=== PATIENT | male | born 1980 | race Caucasian/White ===

== ENCOUNTER 2016-03-21 14:17 | Emergency (ER) | payer MEDICAID, OTHER ==
[~2016-03-21] VITALS: Ht 180.3 cm; Wt 94.5 kg
[~2016-03-21 14:17] MED LIST: IBUP-1542 PO; IBUP800T25 PO
[2016-03-21 14:20] VITALS: Ht 180.3 cm; Wt 94.5 kg
--- NOTE | 2016-03-21 15:09 | ERD ---
ER Documentation Chief Complaint Date/Time DATE: 03/21/16 TIME: 15:06 Chief Complaint back pain HPI This is a 35-year-old male who presents emergency department today complaining of low back pain for the past 2 days. Patient is a 2 days ago he injured his back while lifting a heavy vacuum that was filled with water. Patient states he works at [employer]. States last he took Tylenol for the pain but he is having pain even sleeping. Denies any fevers or chills, loss of bowel or bladder control. ROS All systems reviewed and are negative except as per history of present illness. Medications Home Meds Active Scripts Cyclobenzaprine Hcl* (Cyclobenzaprine Hcl*) 10 Mg Tablet, 10 MG PO QHS, #7 TAB Prov:EDINSON ARREDONDO PA-C 03/21/16 Naproxen* (Naprosyn*) 500 Mg Tablet, 500 MG PO BID Y for PAIN AND/OR INFLAMMATION, #30 TAB Prov:EDINSON ARREDONDO PA-C 03/21/16 Hydrocodone/Acetaminophen ([place] 10-325 Tablet) 1 Each Tablet, 1 TAB PO Q6H Y for PAIN, #20 TAB Prov:EDINSON ARREDONDO PA-C 03/21/16 Ibuprofen* (Motrin*) 800 Mg Tab, 800 MG PO Q6, #20 TAB Prov:JOSE SAMUELS NP 05/23/15 Ibuprofen* (Motrin*) 600 Mg Tab, 600 MG PO Q6H Y for PAIN AND OR ELEVATED TEMP, #30 TAB Prov:GARCIA UNDERWOOD NP 03/04/15 Reported Medications [none] Unknown Strength No Conflict Check 03/04/15 Allergies Allergies: Coded Allergies: No Known Allergy (Unverified , 06/02/13) PMhx/Soc History of Surgery: Yes (Leg fracture Surgery) Anesthesia Reaction: No Hx Neurological Disorder: No Hx Respiratory Disorders: No Hx Cardiac Disorders: No Hx Psychiatric Problems: No Hx Miscellaneous Medical Probl: No Hx Alcohol Use: Yes Hx Substance Use: Yes (Meth) Hx Tobacco Use: Yes Smoking Status: Current some day smoker Physical Exam Vitals Vital Signs Date Time Temp Pulse Resp B/P Pulse Ox O2 Delivery O2 Flow Rate FiO2 03/21/16 14:20 98.2 94 19 129/76 98 Physical Exam Const: NAD Head: Atraumatic Eyes: Normal Conjunctiva ENT: Normal External Ears, Nose and Mouth. Neck: Full range of motion..~ No meningismus. Resp: Clear to auscultation bilaterally Cardio: Regular rate and rhythm, no murmurs Abd: Soft, non tender, non distended. Normal bowel sounds Skin: No petechiae or rashes Back: Lumbar spine no obvious deformity. No step-off. No effusion. No ecchymosis. Midline tenderness and bilateral paraspinal tenderness. Pain with active range of motion. Pulses 2+. Distal neurovascularly intact. Negative straight leg raise. Ext: No cyanosis, or edema Neur: Awake and alert Psych: Normal Mood and Affect Results 24 hrs Current Medications Medications (Trade) Dose Ordered Sig/Gina Route PRN Reason Start Time Stop Time Status Last Admin Dose Admin Acetaminophen/ Hydrocodone Bitart ([place] ()) 1 tab ONCE ONCE PO 03/21/16 15:30 03/21/16 15:31 DC 03/21/16 15:26 Patient: MERLENE BATRES : 1980 Age: 35 Sex: M MR #: [id number] DOS: 03/21/16 0000 Ordering MD: EDINSON ARREDONDO PA-C Location: [facility] Room/Bed: PROCEDURE: XR lumbosacral Spine Series CLINICAL INDICATION: Trauma lifting at work TECHNIQUE: 3 standard radiographs were taken of the lumbosacral spine. COMPARISON: None FINDINGS: Alignment: the osseous elements are well aligned without evidence of subluxation. Disk spaces: the disk spaces are adequately maintained. Osseous structures: appear intact with no fracture or osseous destruction identified. There is anterior spondylosis off the adjacent endplates at L1-L2 and on the superior endplate of T12. Joint spaces: the facet joints joints appear unremarkable. The sacroiliac joints appear normal. Soft tissues: appear unremarkable. IMPRESSION: 1. Mild anterior spondylosis. 2. Otherwise, unremarkable three-view lumbosacral spine series. Physician Adarsh Date Time Electronically viewed and signed by Physician Adarsh on 03/21/2016 15:59 RH/ CC: EDINSON ARREDONDO PA-C Procedures/[facility] This is a 35 year old male who presents to emergency department today for back pain that began 2 days ago lifting a heavy item at work. Physical exam patient did have midline and bilateral paraspinal tenderness and given that there was trauma did obtain imaging. Per the radiology report there is mild anterior spondylosis. Otherwise unremarkable.Disc spaces are adequately maintained. No acute fracture dislocation. SI joints are unremarkable. Patient's symptoms may be related to the anterior spondylosis. I cannot say for certain whether this is something that is acute or chronic. Otherwise patient's symptoms related to musculoskeletal sprain versus strain. Patient is afebrile and otherwise well- appearing. He has no loss of bowel or bladder control and I was suspicion for abscess or cauda equina. I explained the results to the patient. I explained to him that should he continue to have back pain that he would possibly need referral to nuisance wildlife specialist. Patient understood. Was given [place] here in the emergency department. I'll give the patient prescription for short course of [place] for home as well as Naprosyn and Flexeril to take at night for muscle spasm. At this time the patient is stable for discharge and outpatient management. Patient should follow up with their PCP in the next 1-2 days. They may return to the emergency department sooner for any persistent or worsening of symptoms. Patient understood and agreed with the plan. Departure Diagnosis: Primary Impression: Injury of back Encounter type: initial encounter Qualified Code: S39.92XA - Injury of back , initial encounter Condition: Fair EDINSON ARREDONDO PA-C Mar 21, 2016 15:08
[2016-03-21] MEDS ORDERED: HYDROCODONE/APAP (10/325) TAB PO ONE (15:30)
--- NOTE | 2016-03-21 15:59 | RADRPT ---
PROCEDURE: XR lumbosacral Spine Series CLINICAL INDICATION: Trauma lifting at work TECHNIQUE: 3 standard radiographs were taken of the lumbosacral spine. COMPARISON: None FINDINGS: Alignment: the osseous elements are well aligned without evidence of subluxation. Disk spaces: the disk spaces are adequately maintained. Osseous structures: appear intact with no fracture or osseous destruction identified. There is anter ior spondylosis off the adjacent endplates at L1-L2 and on the superior endplate of T12. Joint spaces: the facet joints joints appear unremarkable. The sacroiliac joints appear normal. Soft tissues: appear unremarkable. IMPRESSION: 1. Mild anterior spondylosis. 2. Otherwise, unremarkable three-view lumbosacral spine series. Physician Adarsh Date Time Electronically viewed and signed by Tiffanie Malcolm Physician on 03/21/2016 15:59 /
[2016-03-21] MEDS ORDERED: HYDR-902 PO (16:09)
[2016-03-21] MEDS ORDERED: NAPR-260 PO (16:10)
[2016-03-21] MEDS ORDERED: CYCL-319 PO (16:10)
== END 2016-03-21 16:20 | disposition home or self-care (01) ==
LOC: FTE 14:17
DX: S39.92XA Unspecified injury of lower back, initial encounter (principal); F17.210 Nicotine dependence, cigarettes, uncomplicated; X50.0XXA Overexertion from strenuous movement or load, initial encounter; Y92.9 Unspecified place or not applicable
CPT/HCPCS: 72100; Z7502; Z7610

== ENCOUNTER 2016-12-10 23:44 | Emergency (ER) | payer OTHER ==
[~2016-12-10] VITALS: Ht 182.9 cm; Wt 96.0 kg
[~2016-12-10 23:44] MED LIST changes: +CYCL-319 PO; +HYDR-902 PO; +NAPR-260 PO
[2016-12-10 23:51] VITALS: Ht 182.9 cm; Wt 96.0 kg
[2016-12-11] MEDS ORDERED: IBUP-1542 PO (00:38)
[2016-12-11] MEDS ORDERED: CYCL-319 PO (00:38)
--- NOTE | 2016-12-11 00:54 | ERD ---
ER Documentation Chief Complaint Date/Time DATE: 12/11/16 TIME: 00:52 Chief Complaint lower and upper back pain since this am HPI 36-year-old male presents to the ED complaining of left lumbar back pain and left trapezius muscle that started this morning since he was lifting heavy objects last night. Patient states that in the past [employer]uk[employer] has worked for him. He denies taking any medications for this. ROS All systems reviewed and are negative except as per history of present illness. Medications Home Meds Active Scripts Cyclobenzaprine Hcl* (Cyclobenzaprine Hcl*) 10 Mg Tablet, 10 MG PO TID, #15 TAB Prov:DOMO SALVADOR PA-C 12/11/16 Ibuprofen* (Motrin*) 600 Mg Tab, 600 MG PO Q6H Y for PAIN AND OR ELEVATED TEMP, #30 TAB Prov:DOMO SALVADOR PA-C 12/11/16 Cyclobenzaprine Hcl* (Cyclobenzaprine Hcl*) 10 Mg Tablet, 10 MG PO QHS, #7 TAB Prov:EDINSNO ARREDONDO PA-C 03/21/16 Naproxen* (Naprosyn*) 500 Mg Tablet, 500 MG PO BID Y for PAIN AND/OR INFLAMMATION, #30 TAB Prov:EDINSON ARREDONDO PA-C 03/21/16 Hydrocodone/Acetaminophen ([place] 10-325 Tablet) 1 Each Tablet, 1 TAB PO Q6H Y for PAIN, #20 TAB Prov:EDINSON ARREDONDO PA-C 03/21/16 Ibuprofen* (Motrin*) 800 Mg Tab, 800 MG PO Q6, #20 TAB Prov:JOSE SAMUELS NP 05/23/15 Ibuprofen* (Motrin*) 600 Mg Tab, 600 MG PO Q6H Y for PAIN AND OR ELEVATED TEMP, #30 TAB Prov:GARCIA UNDERWOOD NP 03/04/15 Reported Medications [none] Unknown Strength No Conflict Check 03/04/15 Allergies Allergies: Coded Allergies: No Known Allergy (Unverified , 06/02/13) PMhx/Soc Medical and Surgical Hx: pt denies Medical Hx, pt denies Surgical Hx History of Surgery: Yes (Leg fracture Surgery) Anesthesia Reaction: No Hx Neurological Disorder: No Hx Respiratory Disorders: No Hx Cardiac Disorders: No Hx Psychiatric Problems: No Hx Miscellaneous Medical Probl: Yes (BACK PAIN ) Hx Alcohol Use: No Hx Substance Use: No Hx Tobacco Use: No Smoking Status: Former smoker Physical Exam Vitals Vital Signs Date Time Temp Pulse Resp B/P Pulse Ox O2 Delivery O2 Flow Rate FiO2 12/10/16 23:51 98.1 80 18 129/75 99 Physical Exam GENERAL: WD/WN, in no apparent distress, non-toxic appearing HENT: NC/AT EYES: Conjunctiva normal NECK: Supple PULM: Normal labored breathing CV: Good capillary refill GI: Non-distended, no guarding BACK: no deformities noted, normal spinal curvature, TTP on lumbar region, non- tender on spine midline, \ EXT: No clubbing, cyanosis, or edema NEURO: Moves on all fours, sensation intact, normal gait SKIN: intact PSYCH: Normal mood Results 24 hrs Current Medications Medications (Trade) Dose Ordered Sig/Gina Route PRN Reason Start Time Stop Time Status Last Admin Dose Admin Ibuprofen (Motrin) 600 mg ONCE ONCE PO 12/11/16 01:00 12/11/16 01:01 12/11/16 00:45 Procedures/MDM This is a 36-year-old male presenting to the emergency department complaining of back pain, this is likely due to a strain. There was no evidence of any vertebral fracture, cauda equina. Patient was given prescription for ibuprofen and Flexeril. Departure Diagnosis: Primary Impression: Back pain Condition: Stable Patient Instructions: Back Pain (Acute Or Chronic) Referrals: NO PRIMARY,CARE PHYSICIAN (PCP) Additional Instructions: You have been given a medicine which may cause drowsiness.DO NOT DRIVE OR OPERATE DANGEROUS MACHINERY while taking this medicine! DOMO SALVADOR PA-C Dec 11, 2016 00:54
[2016-12-11] MEDS ORDERED: IBUPROFEN 600 MG TAB PO ONE (01:00)
== END 2016-12-11 00:55 | disposition home or self-care (01) ==
LOC: FTE 23:44
DX: M54.5 Low back pain (principal); Z87.891 Personal history of nicotine dependence
CPT/HCPCS: Z7502; Z7610; 99283

== ENCOUNTER 2016-12-25 01:23 | Emergency (ER) | payer OTHER ==
[~2016-12-25] VITALS: Ht 180.3 cm; Wt 97.5 kg
[2016-12-25 01:38] VITALS: Ht 180.3 cm; Wt 97.5 kg
[2016-12-25] MEDS ORDERED: HYDR-906 PO (02:24)
[2016-12-25] MEDS ORDERED: MUPI22OI2 TOP (02:24)
--- NOTE | 2016-12-25 02:24 | ERD ---
ER Documentation Chief Complaint Date/Time DATE: 12/25/16 TIME: 02:20 Chief Complaint "I HAVE A COLD SORE ON MY PENIS AND IT REALLY HURTS" HPI 36-year-old male presents with irritation and rash at the tip of his penis right at his urethra. He states he has had this before and was treated with antibiotics with good relief of his symptoms. He first noticed it today and it is painful when no fever. No nausea or vomiting. No hematuria or frequency. He has had no bleeding or drainage from his penis. ROS All systems reviewed and are negative except as per history of present illness. Medications Home Meds Active Scripts Cyclobenzaprine Hcl* (Cyclobenzaprine Hcl*) 10 Mg Tablet, 10 MG PO TID, #15 TAB Prov:DOMO SALVADOR PA-C 12/11/16 Ibuprofen* (Motrin*) 600 Mg Tab, 600 MG PO Q6H Y for PAIN AND OR ELEVATED TEMP, #30 TAB Prov:DOMO SALVADOR PA-C 12/11/16 Cyclobenzaprine Hcl* (Cyclobenzaprine Hcl*) 10 Mg Tablet, 10 MG PO QHS, #7 TAB Prov:EDINSON ARREDONDO PA-C 03/21/16 Naproxen* (Naprosyn*) 500 Mg Tablet, 500 MG PO BID Y for PAIN AND/OR INFLAMMATION, #30 TAB Prov:EDINSON ARREDONDOC 03/21/16 Hydrocodone/Acetaminophen ([place] 10-325 Tablet) 1 Each Tablet, 1 TAB PO Q6H Y for PAIN, #20 TAB Prov:EDINSON ARREDONDO PA-C 03/21/16 Ibuprofen* (Motrin*) 800 Mg Tab, 800 MG PO Q6, #20 TAB Prov:JOSE SAMUELS NP 05/23/15 Ibuprofen* (Motrin*) 600 Mg Tab, 600 MG PO Q6H Y for PAIN AND OR ELEVATED TEMP, #30 TAB Prov:GARCIA UNDERWOOD NP 03/04/15 Reported Medications [none] Unknown Strength No Conflict Check 03/04/15 Allergies Allergies: Coded Allergies: No Known Allergy (Unverified , 06/02/13) PMhx/Soc History of Surgery: Yes (Leg fracture Surgery) Anesthesia Reaction: No Hx Neurological Disorder: No Hx Respiratory Disorders: No Hx Cardiac Disorders: No Hx Psychiatric Problems: No Hx Miscellaneous Medical Probl: Yes (BACK PAIN ) Hx Alcohol Use: Yes Hx Substance Use: Yes (marijuana) Hx Tobacco Use: No Smoking Status: Never smoker FmHx Family History: No diabetes Physical Exam Vitals Vital Signs Date Time Temp Pulse Resp B/P Pulse Ox O2 Delivery O2 Flow Rate FiO2 12/25/16 01:38 96.9 90 20 131/71 100 Physical Exam INITIAL VITAL SIGNS: Reviewed by me GENERAL: Awake, alert and oriented x 4, well appearing, nontoxic, speaking in full sentences. No acute distress HEAD: Atraumatic RESPIRATORY: Clear to auscultation bilaterally. Symmetric chest wall rise. No wheezing or rales. No accessory muscle use. CV: Regular rate and rhythm. No murmurs, rubs, or gallops. ABDOMEN: Soft, non-distended. Nontender. Negative Crane. Negative McBurneys point tenderness. No CVA tenderness bilaterally. No guarding. No rebound. : At the tip of the patient's penis right at the urethra there is some excoriated skin less than half a centimeter in diameter, no ulcerating lesions, no active bleeding, no drainage Results 24 hrs Current Medications Medications (Trade) Dose Ordered Sig/Gina Route PRN Reason Start Time Stop Time Status Last Admin Dose Admin Ceftriaxone Sodium (Rocephin) 250 mg ONCE ONCE IM 12/25/16 02:30 12/25/16 02:31 Azithromycin (Zithromax) 1,000 mg ONCE ONCE PO 12/25/16 02:30 12/25/16 02:31 Procedures/MDM Patient presents with irritation on the tip of his penis. Patients is alert, oriented, well appearing, and in no distress with normal vital signs. There is no fever, tachycardia, or tachypnea. He states he has had this before and came here and he was treated with antibiotics which got rid of it. I reviewed the previous note from that visit and solid he was given azithromycin and ceftriaxone and so he was given that here today and I also discharge him with Bactroban cream. It does not appear herpetic or as syphilis. He does not have signs or symptoms of urinary tract infection. Patient counseled regarding my diagnostic impression and care plan. Prior to discharge all questions answered. Pt agrees with treatment plan and understands strict return precautions. Pt is instructed to follow up with primary care provider within 24-48 hours. Precautionary instructions provided including instructions to return to the ER if not improving or for any worsening or changing symptoms or concerns. Departure Diagnosis: Primary Impression: Penile rash Condition: Stable MIS LANGLEY PA-C Dec 25, 2016 02:24
[2016-12-25] MEDS ORDERED: CEFTRIAXONE 250 MG INJ IM ONE (02:30)
[2016-12-25] MEDS ORDERED: AZITHROMYCIN 250 MG TAB PO ONE (02:30)
== END 2016-12-25 02:45 | disposition home or self-care (01) ==
LOC: FTE 01:23
DX: N48.89 Other specified disorders of penis (principal)
CPT/HCPCS: 96372; J0696; Z7502; Z7610

== ENCOUNTER 2017-05-11 02:35 | Emergency (ER) | END 2017-05-11 05:31 | disposition left against medical advice (07) ==

== ENCOUNTER 2017-07-07 01:47 | Emergency (ER) | END 2017-07-07 05:42 | disposition left against medical advice (07) ==

== ENCOUNTER 2017-10-16 02:21 | Emergency (ER) | END 2017-10-16 04:40 | disposition home or self-care (01) ==

== ENCOUNTER 2018-03-14 16:36 | Emergency (ER) | payer SELFPAY ==
[~2018-03-14] VITALS: Ht 182.9 cm; Wt 100.0 kg
[~2018-03-14 16:36] MED LIST changes: +CEPH-443 PO; -CYCL-319 PO; +CYCL10TA7 PO; +HYDR-3980 PO; +HYDR-4011 PO; -HYDR-902 PO; -IBUP800T25 PO; +IBUP800T48 PO; +MUPI22OI2 TOP; -NAPR-260 PO; +NAPR-985 PO; +SULF1TAB31 PO
[2018-03-14 17:02] VITALS: BP 133/86; PULSE 95; RESP 18; Ht 182.9 cm; Wt 100.0 kg
== END 2018-03-14 19:22 | disposition left against medical advice (07) ==
LOC: FTE 16:36
DX: Z53.21 Procedure and treatment not carried out due to patient leaving prior to being seen by health care provider (principal)